=== PATIENT | male | born 1985 | race Caucasian/White ===

== ENCOUNTER 2025-03-11 00:40 | Emergency (ER) | payer BC, SELFPAY ==
[2025-03-11] MEDS ORDERED: MORPHINE 4 MG/ML SYR ONE (01:20)
[2025-03-11] MEDS ORDERED: KETOROLAC 30 MG/ML INJ ONE (01:20)
[2025-03-11] MEDS ORDERED: ONDANSETRON 4 MG/2 ML VIAL ONE (01:20)
[2025-03-11] MEDS ORDERED: NA CHLORIDE 0.9% 1,000 ML ONE (01:21)
[2025-03-11 01:32] LABS: Absolute Lymphocytes (CBC) 2.5 K/uL (0.7-4.9); Hematocrit 42.3 % (39.6-49.0); Hemoglobin 14.8 g/dL (13.6-17.9); MCH 29.9 pg (27.0-35.0); MCHC 35.0 g/dL (32.0-36.0); MCV 85.4 fL (80-100); MPV 9.8 fL (7.6-11.3); Nucleated RBC Absolute Count 0.0 (0-0); Nucleated Red Blood Cells % 0.0 % (0-0); RBC Red Blood Cell Count 4.95 M/uL (4.33-5.43); White Blood Count 11.10 thou/uL (4.3-10.9)
[2025-03-11 01:41] LABS: ALT/SGPT 45.0 U/L (16-61); AST/SGOT 18.0 U/L (15-37); Albumin 4.4 g/dL (3.4-5.0); Albumin/Globulin Ratio 1.6 (1.1-1.8); Alkaline Phosphatase 75.0 U/L (45-117); Anion Gap 7.6 mEq/L (5.0-15.0); BUN Blood Urea Nitrogen 22.0 mg/dL (7-18); Globulin 2.8 g/dL (2.3-3.5); Glucose Level 109.0 mg/dL (74-106); Lipase 42.0 U/L (13-75); Potassium 3.6 mEq/L (3.5-5.1)
[2025-03-11 01:51] LABS: Calcium Oxalate Crystals- Ur Few /HPF (None Seen); Sqamous Epithelial <5 /HPF (None Seen); Urine Culture Reflex Order NOT NEEDED; Urine Microscopic Reflex YN ORDER UMIC
--- NOTE | 2025-03-11 02:03 | EDPHYS ---
Physician Documentation [facility] Name: Joao Marques Age: 39 yrs Sex: Male : 1985 Arrival Date: 03/11/2025 Time: 00:40 Bed 18 Private MD: ED Physician En Barrett HPI: 03/11 01:36 This 39 yrs old Male presents to ER via EMS with complaints of Possible dr5 Kidney Stone. 01:36 Onset: The symptoms/episode began/occurred 8 day(s) ago. Patient is a 39-year-old male dr5 with history of kidney stones coming in with left flank pain this been going on for the past 8 days. Patient reports that he went to [facility] and was diagnosed with left-sided kidney stone. Patient was given Tylenol 3, naproxen, and tamsulosin. Patient reports he stopped taking Tylenol 3 due to constipation and naproxen as it was not helping. Patient reports taking Flomax. Patient reports intermittent left-sided flank pain with gross hematuria. Patient denies fever, chest pain, nausea, vomiting, constipation, or diarrhea.. Historical: - Allergies: 00:46 PENICILLINS; al5 - PMHx: 00:46 kidney stones; al5 - PSHx: 00:46 Tonsillectomy; al5 - Immunization history:: Adult Immunizations up to date. - Infectious Disease History:: Denies. - Social history:: Smoking status: Patient reports the use of cigarette tobacco products, smokes one-half pack cigarettes per day. ROS: 01:36 Constitutional: as per hpi dr5 Exam: 01:36 Constitutional: This is a well developed, well nourished patient who is awake, alert, dr5 and in no acute distress. Head/Face: Normocephalic, atraumatic. Eyes: Pupils equal round and reactive to light, extra-ocular motions intact. Lids and lashes normal. Conjunctiva and sclera are non-icteric and not injected. Cornea within normal limits. Periorbital areas with no swelling, redness, or edema. Neck: Trachea midline, no thyromegaly or masses palpated, and no cervical lymphadenopathy. Supple, full range of motion without nuchal rigidity, or vertebral point tenderness. No Meningismus. Chest/axilla: Normal chest wall appearance and motion. Nontender with no deformity. No lesions are appreciated. Cardiovascular: Regular rate and rhythm with a normal S1 and S2. Normal PMI, no JVD. No pulse deficits. Respiratory: Lungs have equal breath sounds bilaterally, clear to auscultation. No rales, rhonchi or wheezes noted. No increased work of breathing, no retractions or nasal flaring. Abdomen/GI: Soft, non-tender, non-distended Back: No spinal tenderness. No costovertebral tenderness. Full range of motion. No tenderness to palpation and patient does not have pain upon examination as the pain comes in waves. Skin: Warm, dry with normal turgor. Normal color with no rashes, no lesions, and no evidence of cellulitis. MS/ Extremity: Pulses equal, no cyanosis. Neurovascular intact. Full, normal range of motion. Neuro: Awake and alert, GCS 15, oriented to person, place, time, and situation. Cranial nerves II-XII grossly intact. Motor strength 5/5 in all extremities. Sensory grossly intact. Cerebellar exam normal. Normal gait. Vital Signs: 00:42 BP 152 / 93; Pulse 89; Resp 18; Temp 98.2; Pulse Ox 98% on R/A; Weight 92.99 kg; Height al5 5 ft. 10 in. ; 01:00 BP 153 / 96; Pulse 83; Resp 18; Pulse Ox 98% on R/A; al5 01:30 BP 136 / 81; Pulse 88; Resp 17; Pulse Ox 99% on R/A; al5 02:00 BP 131 / 76; Pulse 86; Resp 17; Pulse Ox 98% on R/A; al5 02:30 BP 135 / 78; Pulse 84; Resp 18; Pulse Ox 98% on R/A; al5 00:42 Body Mass Index 29.41 (92.99 kg, 177.8 cm) al5 MDM: 00:45 Medical Screening Exam initiated dr5 01:36 Differential diagnosis: Kidney stone, urinary tract infection, hydronephrosis. Data dr5 reviewed: vital signs, nurses notes, lab test result(s), CBC, white blood cell count, hemoglobin, hematocrit, platelets, radiologic studies, CT scan. ED course: Initial plan is to get CT scan to rule out infected or obstructed stone causing hydronephrosis. Will give pain medication. Will obtain labs and urine. . 02:03 Consideration of Admission/Observation Escalation of care including dr5 admission/observation considered. Escalation considered patient found to have obstructing stone. I considered the following discharge prescriptions or medication management in the emergency department I discussed and recommended Over The Counter medications, Medications were administered in the Emergency Department. See MAR. Independent interpretation of the following test(s) in the Emergency Department CT Scan: My interpretation is Independent of rotation of CT scan reveals kidney stone on left ureter without extensive hydronephrosis. Historians other than the Patient: Parent: Father. Care significantly affected by the following chronic conditions: Kidney Stones. Care significantly affected by the following Social Determinants of Health: Poor access to healthcare and/or lack of insurance, Poor access to transportation, Problems related to employment. Counseling: I had a detailed discussion with the patient and/or guardian regarding the historical points, exam findings, and any diagnostic results supporting the discharge/admit diagnosis, the presence of at least one elevated blood pressure reading (>120/80) during this emergency department visit, lab results, radiology results, the need for outpatient follow up, for definitive care, a urologist, to return to the emergency department if symptoms worsen or persist or if there are any questions or concerns that arise at home. Medication response: morphine relieved the patient's pain. Symptoms have resolved, Toradol relieved patient's pain. The symptoms have resolved. Response to treatment: the patient's symptoms have resolved after treatment, the patient's condition has returned to base line, the patient is now symptom free. Special discussion: I have referred the patient to see his PCP for further evaluation of high blood pressure. I discussed with the patient/guardian in detail that at this point there is no indication for admission to the hospital. It is understood, however, that if the symptoms persist or worsen the patient needs to return immediately for re-evaluation. Based on the history and exam findings, there is no indication for further emergent testing or inpatient evaluation. I discussed with the patient/guardian the need to see the urologist for further evaluation of the symptoms. ED course: Strainer given to patient to strain urine. Will give patient Toradol pills to help with passing stone and refill Flomax. No urinary tract infection noted. Recommend patient follow-up with urology this week. All questions answered.. 03/11 00:57 Order name: CBC with Diff; Complete Time: 01:51 dr5 03/11 00:57 Order name: CMP; Complete Time: 01:51 dr5 03/11 00:57 Order name: Lipase; Complete Time: 01:51 dr5 03/11 00:57 Order name: UA Rfx Cameron Cult if indicated; Complete Time: 01:55 dr5 03/11 00:57 Order name: Stone Protocol CT dr5 03/11 00:57 Order name: IV Saline Lock; Complete Time: 01:05 dr5 03/11 00:57 Order name: Labs collected and sent; Complete Time: 01:05 dr5 Administered Medications: 01:31 Drug: TORadol - Ketorolac IVP 15 mg IVP once Route: IVP; Site: right antecubital; al5 02:53 Follow up: Response: No adverse reaction; Pain is decreased al5 01:31 Drug: Ondansetron IVP 4 mg IVP once; over 2 minutes Route: IVP; Site: right antecubital;al5 02:53 Follow up: Response: No adverse reaction; Nausea is decreased al5 01:31 Drug: NS 0.9% IV 1000 ml IV at 1 bolus Per protocol; to be given as a bolus over 60 al5 minutes Route: IV; Rate: 1 bolus; Site: right antecubital; 02:54 Follow up: Response: No adverse reaction; IV Status: Completed infusion; IV Intake: al5 1000ml 01:32 Drug: morphine IVP or IV 4 mg IVP once over 4 mins Route: IVP; Infused Over: 4 mins; al5 Site: right antecubital; 02:53 Follow up: Response: No adverse reaction; Pain is decreased al5 Disposition: 03:45 Co-signature as Attending Physician, En Barrett MD I agree with the assessment sp4 and plan of care. I reviewed the patient's care provided by the Advanced Practice Provider and agree with the diagnosis and treatment plan. Disposition Summary: 03/11/25 02:03 Discharge Ordered Notes: Location: Home dr5 Condition: Stable dr5 Diagnosis - Kidney Stone/ Calculus in urethra - Kidney stone in ureters dr5 Followup: dr5 - With: Emergency Department - When: As needed - Reason: Worsening of condition Followup: dr5 - With: Private Physician - When: 1 - 2 days - Reason: Recheck today's complaints, Continuance of care, Re-evaluation by your physician Discharge Instructions: - Discharge Summary Sheet dr5 - Kidney Stones dr5 - Dietary Guidelines to Help Prevent Kidney Stones dr5 Forms: - Work release form al5 - Medication Reconciliation Form dr5 - Prescription Opioid Use dr5 - Patient Portal Instructions dr5 - Leadership Thank You Letter dr5 Prescriptions: - ketorolac 10 mg Oral tablet - take 1 tablet ORAL route 4 times per day As needed maximum total duration of 5 dr5 days from all oral, intranasal, or parenteral formulations; 30 tablet; Refills: 0, Product Selection Permitted - Flomax 0.4 mg Oral capsule - take 1 capsule ORAL route daily; 30 capsule; Refills: 0, Product Selection dr5 Permitted - Tramadol 50 mg Oral Tablet - take 1 tablet ORAL route every 8 hours as needed; 12 tablet; Refills: 0, dr5 Product Selection Permitted Signatures: Dispatcher [employer] EDMS En Barrett MD MD sp4 Nikole Eid RN RN al5 Victorino Andrews, SALES SUPPORT ADVISOR-C SALES SUPPORT ADVISOR-Cdr5 Corrections: (The following items were deleted from the chart) 00:58 00:58 CBC+H.LAB.BRZ ordered. EDMS EDMS 00:58 00:58 COMPREHENSIVE METABOLIC PANEL+C.LAB.BRZ ordered. EDMS EDMS 00:58 00:58 LIPASE+C.LAB.BRZ ordered. EDMS EDMS 00:58 00:58 UA Rfx Cameron Cult if indicated+U.LAB.BRZ ordered. EDMS EDMS 00:58 00:58 Stone Protocol+CT.RAD.BRZ ordered. EDMS EDMS
--- NOTE | 2025-03-11 02:03 | ER ---
Nurse's Notes [facility] Name: Joao Marques Age: 39 yrs Sex: Male : 1985 Arrival Date: 03/11/2025 Time: 00:40 Bed 18 Private MD: Diagnosis: Kidney Stone/ Calculus in urethra-Kidney stone in ureters Presentation: 03/11 00:42 Chief complaint: Patient states: c/o kidney stone since last Sunday. has been seen for al5 this kidney stone and was sent home with naproxen, hydrocodone, and flomax. patient states the pain medications have not been helping so is no longer taking them, still is taking the flomax. Coronavirus screen: At this time, the client does not indicate any symptoms associated with coronavirus-19. Ebola Screen: No symptoms or risks identified at this time. Initial Sepsis Screen: Does the patient meet any 2 criteria? No. Patient's initial sepsis screen is negative. Does the patient have a suspected source of infection? No. Patient's initial sepsis screen is negative. Risk Assessment: Do you want to hurt yourself or someone else? Patient reports no desire to harm self or others. Note flomax 0.4 taken at 2200 last night. Onset of symptoms was March 03, 2025. 00:42 Method Of Arrival: EMS: [facility] al5 00:42 Acuity: NILSA 3 al5 Triage Assessment: 00:46 General: Appears in no apparent distress. uncomfortable, Behavior is calm, cooperative. al5 Pain: Complains of pain in left upper quadrant Pain radiates to left mid back. EENT: No signs and/or symptoms were reported regarding the EENT system. Neuro: Level of Consciousness is awake, alert, obeys commands, Oriented to person, place, time, situation. Cardiovascular: Capillary refill < 3 seconds Patient's skin is warm and dry. Respiratory: Airway is patent Respiratory effort is even, unlabored, Respiratory pattern is regular, symmetrical. GI: Abdomen is non-distended. : Urine is barrington/tea color Reports pain in left flank(s), feels like kidney stones. Derm: Skin is intact, is healthy with good turgor, Skin is pink, warm \T\ dry. normal. Musculoskeletal: Circulation, motion, and sensation intact. Range of motion: intact in all extremities. Historical: - Allergies: 00:46 PENICILLINS; al5 - PMHx: 00:46 kidney stones; al5 - PSHx: 00:46 Tonsillectomy; al5 - Immunization history:: Adult Immunizations up to date. - Infectious Disease History:: Denies. - Social history:: Smoking status: Patient reports the use of cigarette tobacco products, smokes one-half pack cigarettes per day. Screenin:48 [facility] ED Fall Risk Assessment (Adult) History of falling in the last 3 months, al5 including since admission No falls in past 3 months (0 pts) Confusion or Disorientation No (0 pts) Intoxicated or Sedated No (0 pts) Impaired Gait No (0 pts) Mobility Assist Device Used No (0 pt) Altered Elimination No (0 pt) Score/Fall Risk Level 0 - 2 = Low Risk Oriented to surroundings, Maintained a safe environment, Hourly rounding (assess needs \T\ fall precautionary measures) done. Abuse screen: Denies threats or abuse. Denies injuries from another. Nutritional screening: No deficits noted. Tuberculosis screening: No symptoms or risk factors identified. Assessment: 00:48 Reassessment: see triage assessment. al5 01:32 Reassessment: Patient appears in no apparent distress at this time. No changes from al5 previously documented assessment. Patient and/or family updated on plan of care and expected duration. Pain level reassessed. Patient is alert, oriented x 3, equal unlabored respirations, skin warm/dry/pink. 02:13 Reassessment: Patient appears in no apparent distress at this time. Patient and/or al5 family updated on plan of care and expected duration. Pain level reassessed. Patient is alert, oriented x 3, equal unlabored respirations, skin warm/dry/pink. discharge pending fluid infusion and ride home Patient states feeling better. Patient states symptoms have improved. Vital Signs: 00:42 BP 152 / 93; Pulse 89; Resp 18; Temp 98.2; Pulse Ox 98% on R/A; Weight 92.99 kg; Height al5 5 ft. 10 in. ; 01:00 BP 153 / 96; Pulse 83; Resp 18; Pulse Ox 98% on R/A; al5 01:30 BP 136 / 81; Pulse 88; Resp 17; Pulse Ox 99% on R/A; al5 02:00 BP 131 / 76; Pulse 86; Resp 17; Pulse Ox 98% on R/A; al5 02:30 BP 135 / 78; Pulse 84; Resp 18; Pulse Ox 98% on R/A; al5 00:42 Body Mass Index 29.41 (92.99 kg, 177.8 cm) al5 ED Course: 00:42 Patient arrived in ED. al5 00:45 Victorino Andrews FNP-C [facility]. dr5 00:45 En Barrett MD is Attending Physician. dr5 00:46 Triage completed. al5 00:46 Arm band placed on right wrist. Patient placed in the treatment room, in view of staff al5 members, on pulse oximetry. 00:48 Patient has correct armband on for positive identification. Bed in low position. Call al5 light in reach. Side rails up X 1. Provided Education on: plan of care. 00:48 No provider procedures requiring assistance completed. al5 01:05 Nikole Eid RN is Primary Nurse. al5 01:06 Door closed. Lights dimmed. Warm blanket given. . ts3 01:06 Inserted saline lock: 18 gauge in right antecubital area, using aseptic technique. ts3 Blood collected. Flushed with 10 mL NS. 01:06 Initial lab(s) drawn, by lab engineer, sent to lab. ts3 01:06 Urine collected: clean catch specimen, sent to lab. ts3 02:[address] In Process Unspecified. EDMS 02:54 IV discontinued, intact, bleeding controlled, No redness/swelling at site. Pressure al5 dressing applied. Administered Medications: 01:31 Drug: TORadol - Ketorolac IVP 15 mg IVP once Route: IVP; Site: right antecubital; al5 02:53 Follow up: Response: No adverse reaction; Pain is decreased al5 01:31 Drug: Ondansetron IVP 4 mg IVP once; over 2 minutes Route: IVP; Site: right antecubital;al5 02:53 Follow up: Response: No adverse reaction; Nausea is decreased al5 01:31 Drug: NS 0.9% IV 1000 ml IV at 1 bolus Per protocol; to be given as a bolus over 60 al5 minutes Route: IV; Rate: 1 bolus; Site: right antecubital; 02:54 Follow up: Response: No adverse reaction; IV Status: Completed infusion; IV Intake: al5 1000ml 01:32 Drug: morphine IVP or IV 4 mg IVP once over 4 mins Route: IVP; Infused Over: 4 mins; al5 Site: right antecubital; 02:53 Follow up: Response: No adverse reaction; Pain is decreased al5 Medication: 00:48 VIS not applicable for this client. al5 Intake: 02:54 IV: 1000ml; Total: 1000ml. al5 Outcome: 02:03 Discharge ordered by . fara 03:01 Discharged to home ambulatory, with family, al5 03:01 Condition: good 03:01 Discharge instructions given to patient, Instructed on discharge instructions, follow up and referral plans. no driving heavy equipment, medication usage, Demonstrated understanding of instructions, follow-up care, medications, Prescriptions given X 3, 03:01 Patient left the ED. al5 Signatures: Dispatcher [employer] EDNikole Tavera RN RN al5 Victorino Andrews, DENTAL PATIENT COORDINATOR-C DENTAL PATIENT COORDINATOR-Cdr5 Sangeeta Martin ts3
[2025-03-11 03:05] VITALS: TEMP 98.2
[2025-03-11 03:10] VITALS: O2SAT 98
[2025-03-11 03:12] VITALS: BP 135/78
--- NOTE | 2025-03-11 06:41 | RAD REPORT ---
EXAM DESCRIPTION: Stone Protocol [facility]Lex: CT ABDOMEN PELVIS WITHOUT IV CONTRAST CLINICAL HISTORY: 39 years Male; Left Flank Pain; Bed Name: 18 TECHNIQUE: CT of the abdomen and pelvis without contrast. All CT scans at this facility use dose modulation, iterative reconstruction, and/or weight based dosi ng when appropriate to reduce radiation dose to as low as reasonably achievable. COMPARISON: CT abdomen pelvis 03/03/2025. FINDINGS: Lower thorax: Lung bases are clear Abdomen: Stomach: Within normal limits Liver: No focal lesions. No intrahepatic ductal distention. Gallbladder: Nondistended Pancreas: Within normal limits Spleen: Within normal limits Right kidney: No hydronephrosis. No renal or ureteral calculi. Left kidney: Mild hydronephrosis. 3 mm distal ureteral stone. Adrenal glands: Within normal limits Vascular structures: Within normal limits (although limited evaluation on noncontrast exam). Lymph nodes: No lymphadenopathy by size criteria Pelvis: Small bowel: No significant distention. Appendix: Within normal limits Colon: No distention or acute pericolonic edema. Colonic diverticulosis. Peritoneum: No free intraperitoneal fluid or air. Bones: No acute bone findings. Bladder: Unremarkable. Reproductive organs: No acute findings. Note that evaluation of the bowel and solid organs is somewhat limited due to lack of intravenous and oral contrast. IMPRESSION: 1. Mild left-sided hydronephrosis with a 3 mm left distal ureteral stone. 2. Colonic diverticulosis without diverticulitis. Electronically signed by: Per Lauren MD 03/11/2025 03:38 AM CDT [employer] Due to temporary technical issues with the PACS/[employer] reporting system, reports are being eliseo d by the in-house radiologist without review as a courtesy to ensure prompt reporting the interpreting radiologist is fully responsible for the content of the report. Transcribed Date/Time: 03/11/2025 6:40 AM
== END 2025-03-11 03:01 | disposition home or self-care (01) ==
LOC: ER 00:40
DX: N20.0 Calculus of kidney (principal); N21.1 Calculus in urethra
CPT/HCPCS: 36415; 74176; 76377; 80053; 81001; 83690; 85025; 96361; 96374; 96375; 99284; J2405; J7030